=== PATIENT | male | born 2000 | race Hispanic/Latino ===

== ENCOUNTER 2021-09-12 12:41 | Emergency (ER) | payer BC, MEDICAID ==
[~2021-09-12] VITALS: Ht 170.2 cm; Wt 72.6 kg
[2021-09-12 12:58] VITALS: BP 129/74
[2021-09-12] MEDS ORDERED: KETOROLAC 30MG VIAL (30MG/ML) IM ONE (13:00)
[2021-09-12] MEDS ORDERED: NAPR-1196 PO (14:19)
== END 2021-09-12 14:37 | disposition home or self-care (01) ==
LOC: EDH 12:41
DX: S86.912A Strain of unspecified muscle(s) and tendon(s) at lower leg level, left leg, initial encounter (principal); Z79.1 Long term (current) use of non-steroidal anti-inflammatories (NSAID); X58.XXXA Exposure to other specified factors, initial encounter; Y93.89 Activity, other specified; Y92.89 Other specified places as the place of occurrence of the external cause; Y99.8 Other external cause status
CPT/HCPCS: 29505; 73562; 96372; 99284; J1885